=== PATIENT | female | born 1945 | race Caucasian/White ===

== ENCOUNTER → 2018-08-17 09:49 | Outpatient (CLI) | payer MEDICARE, OTHER, SELFPAY ==
--- NOTE | 2018-08-17 | DI.MG.S_ITS ---
BILATERAL DIGITAL SCREENING MAMMOGRAM 3D/2D WITH CAD: 08/17/2018 CLINICAL: Routine screening. Comparison is made to exams dated: 04/27/2017 mammogram, 04/16/2016 mammogram, and 12/03/2014 mammogram - [facility]. The tissue of both breasts is heterogeneously dense. This may lower the sensitivity of mammography. Current study was also evaluated with a Computer Aided Detection (CAD) system. No significant masses, calcifications, or other findings are seen in either breast. There has been no significant interval change. IMPRESSION: NEGATIVE There is no mammographic evidence of malignancy. A 1 year screening mammogram is recommended. This exam was interpreted at Station ID: [id number]. NOTE: For mammograms, a report in lay terms will be sent to the patient. Approximately 15% of breast malignancies will not be visualized mammographically. In the management of a palpable breast mass, a negative mammogram must not discourage biopsy of a clinically suspicious lesion. Electronically Signed By: Yumi tavares/cuauhtemoc:08/17/2018 10:53:34 copy to: KRISTEN BROWN letter sent: Normal Exam ACR BI-RADS Category 1: Negative [id number]
== END ==
PROVIDERS: PCP Internal Medicine; Visit Provider Oral & Maxillofacial Surgery
DX: Z12.31 Encounter for screening mammogram for malignant neoplasm of breast (principal)
CPT/HCPCS: 77063; 77067

== ENCOUNTER → 2019-10-11 11:43 | Outpatient (CLI) | payer MEDICARE, OTHER, SELFPAY ==
--- NOTE | 2019-10-11 | DI.MG.S_ITS ---
BILATERAL DIGITAL SCREENING MAMMOGRAM 3D/2D WITH CAD: 10/11/2019 CLINICAL: Routine screening. Comparison is made to exams dated: 08/17/2018 mammogram, 04/27/2017 mammogram, and 04/16/2016 mammogram - [facility]. The tissue of both breasts is heterogeneously dense. This may lower the sensitivity of mammography. Current study was also evaluated with a Computer Aided Detection (CAD) system. No significant masses, calcifications, or other findings are seen in either breast. There has been no significant interval change. IMPRESSION: NEGATIVE There is no mammographic evidence of malignancy. A 1 year screening mammogram is recommended. This exam was interpreted at Station ID: [id number]. NOTE: For mammograms, a report in lay terms will be sent to the patient. Approximately 15% of breast malignancies will not be visualized mammographically. In the management of a palpable breast mass, a negative mammogram must not discourage biopsy of a clinically suspicious lesion. Electronically Signed By: Calli franklin/cuauhtemoc:10/11/2019 12:54:42 copy to: PATRICE WADE letter sent: Normal Exam ACR BI-RADS Category 1: Negative [id number]
== END ==
PROVIDERS: PCP Nurse Practitioner Gerontology; Visit Provider Internal Medicine
DX: Z12.31 Encounter for screening mammogram for malignant neoplasm of breast (principal)
CPT/HCPCS: 77063; 77067

== ENCOUNTER → 2020-08-28 17:28 | Outpatient (CLI) | payer MEDICARE, OTHER, SELFPAY ==
--- NOTE | 2020-08-28 | DI.RAD.S_ITS ---
PROCEDURE: XR SHOULDER LT MIN 2V INDICATIONS: left shoulder pain TECHNIQUE: 8 views of the shoulder were acquired. COMPARISON: None. FINDINGS: Bones: No fractures or dislocations. No suspicious bony lesions. Visualized ribs appear intact. Mild left shoulder joint degeneration. Soft tissues: No suspicious soft tissue calcifications. IMPRESSION: Mild left shoulder joint degeneration. If the patient's pain or other symptoms persist, consider further evaluation with MRI Dictated by: Iron Abbott M.D. on 08/29/2020 at 12:54 Approved by: Iron Abbott M.D. on 08/29/2020 at 12:56
== END ==
PROVIDERS: PCP Nurse Practitioner Gerontology; Referring Provider Orthopaedic Surgery; Visit Provider Orthopaedic Surgery
DX: M25.512 Pain in left shoulder (principal); M19.012 Primary osteoarthritis, left shoulder; G89.29 Other chronic pain
CPT/HCPCS: 73030

== ENCOUNTER → 2020-12-10 17:05 | Outpatient (CLI) | payer MEDICARE, OTHER, SELFPAY ==
--- NOTE | 2020-12-10 17:08 | DI.MG.S_ITS ---
BILATERAL DIGITAL SCREENING MAMMOGRAM 3D/2D WITH CAD: 12/10/2020 CLINICAL: Routine screening. Comparison is made to exams dated: 10/11/2019 mammogram, 08/17/2018 mammogram, and 04/27/2017 mammogram - [facility]. The tissue of both breasts is heterogeneously dense. This may lower the sensitivity of mammography. Current study was also evaluated with a Computer Aided Detection (CAD) system. No significant masses, calcifications, or other findings are seen in either breast. There has been no significant interval change. IMPRESSION: NEGATIVE There is no mammographic evidence of malignancy. A 1 year screening mammogram is recommended. This exam was interpreted at Station ID: [id number]. NOTE: For mammograms, a report in lay terms will be sent to the patient. Approximately 15% of breast malignancies will not be visualized mammographically. In the management of a palpable breast mass, a negative mammogram must not discourage biopsy of a clinically suspicious lesion. Electronically Signed By: Bereket rouse/cuauhtemoc:12/11/2020 07:20:33 copy to: PATRICE WADE letter sent: Normal Exam ACR BI-RADS Category 1: Negative [id number]
== END ==
PROVIDERS: PCP Nurse Practitioner Gerontology; Referring Provider Nurse Practitioner Gerontology; Visit Provider Nurse Practitioner Gerontology
DX: Z12.31 Encounter for screening mammogram for malignant neoplasm of breast (principal)
CPT/HCPCS: 77063; 77067

== ENCOUNTER → 2021-07-10 10:38 | Outpatient (CLI) | payer MEDICARE, OTHER, SELFPAY ==
[2021-07-10 18:59] LABS: Appearance Urine UA CLEAR; Bilirubin Urine UA NEGATIVE (NEGATIVE); Color Urine UA YELLOW; Glucose Urine UA NEGATIVE (Negative); Ketones Urine UA NEGATIVE (NEGATIVE); Leukocyte Esterase Urine UA NEGATIVE (NEGATIVE); Nitrite Urine UA NEGATIVE (Negative); Occult Blood Urine UA NEGATIVE (Negative); Protein Urine UA NEGATIVE (Negative); Specific Gravity Urine UA 1.025 (1.000-1.035); Urobilinogen Urine UA 0.2 E.U./dL (0.2)
[2021-07-10 19:12] LABS: Add Manual Diff / Slide Review NO; Basophils Absolute Auto 100 /uL (0-100); Basophils Percent Auto 0.8 % (0-2); Eosinophils Absolute Auto 100 /uL (0-450); Eosinophils Percent Auto 1.3 % (2-4); Hemoglobin 13.2 g/dL (12.0-16.0); Lymphocytes Absolute Auto 1400 /uL (1100-4500); Mean Corpuscular Hemoglobin 29.9 PG (26-34); Mean Corpuscular Volume 90.5 fL (80-100); Monocytes Absolute Auto 500 /uL (0-900); Monocytes Percent Auto 6.7 % (3-14); Neutrophils Absolute Auto 5800 /uL (1500-7000); Neutrophils Percent Auto 73.2 % (50-75); Platelet Count 204 X10^3/uL (150-400); Red Blood Cell Count 4.42 X10^6/uL (4.0-5.2); Red Cell Distribution Width 14.4 % (11.6-14.8); White Blood Cell Count 7.9 X10^3/uL (4.5-11.0)
[2021-07-10 19:33] LABS: Alanine Aminotransferase 17 IU/L (<35); Albumin Globulin Ratio 1.5 (1.0-2.8); Alkaline Phosphatase 67 U/L (38-126); Aspartate Aminotransferase 31 IU/L (14-36); BUN Creatinine Ratio 21.3 (6-22); Bilirubin Total 1.1 mg/dL (0.2-1.3); Blood Urea Nitrogen 20 mg/dL (7-17); Calcium 10.2 mg/dL (8.4-10.2); Carbon Dioxide 30 mmol/L (22-32); Chloride 105 mmol/L (98-107); Estimated Glomerular Filt Rate 57.9 mL/min (>60); Globulin 2.7 g/dL (1.7-4.1); Glucose 90 mg/dL (80-110); HEMOLYSIS < 15 (0-50); Sodium 141 mmol/L (137-145); Total Protein 6.7 g/dL (6.3-8.2)
== END ==
PROVIDERS: PCP Nurse Practitioner Gerontology; Visit Provider Physician Assistant
DX: Z01.818 Encounter for other preprocedural examination (principal)
CPT/HCPCS: 80053; 81003; 85025

== ENCOUNTER → 2021-07-25 08:11 | Outpatient (CLI) | payer MEDICARE, OTHER, SELFPAY ==
[2021-07-25 20:35] LABS: COVID19 - ORCAS (NP or Nasal) Negative (Negative)
== END ==
PROVIDERS: PCP Nurse Practitioner Gerontology; Visit Provider Physician Assistant Medical
DX: Z20.822 Contact with and (suspected) exposure to COVID-19 (principal)
CPT/HCPCS: C9803; U0003

== ENCOUNTER → 2021-12-11 10:50 | Outpatient (CLI) | payer MEDICARE, OTHER, SELFPAY ==
--- NOTE | 2021-12-11 | DI.MG.S_ITS ---
BILATERAL DIGITAL SCREENING MAMMOGRAM 3D/2D WITH CAD: 12/11/2021 CLINICAL: Routine screening. Comparison is made to exams dated: 12/10/2020 mammogram, 10/11/2019 mammogram, 08/17/2018 mammogram, 04/27/2017 mammogram, and 04/16/2016 mammogram - [facility]. The tissue of both breasts is heterogeneously dense. This may lower the sensitivity of mammography. Current study was also evaluated with a Computer Aided Detection (CAD) system. No significant masses, calcifications, or other findings are seen in either breast. There has been no significant interval change. IMPRESSION: NEGATIVE There is no mammographic evidence of malignancy. A 1 year screening mammogram is recommended. This exam was interpreted at Station ID: [id number]. NOTE: For mammograms, a report in lay terms will be sent to the patient. Approximately 15% of breast malignancies will not be visualized mammographically. In the management of a palpable breast mass, a negative mammogram must not discourage biopsy of a clinically suspicious lesion. Electronically Signed By: Charli mosley/cuauhtemoc:12/11/2021 14:48:44 copy to: PATRICE WADE letter sent: Normal Exam ACR BI-RADS Category 1: Negative [id number]
== END ==
PROVIDERS: PCP Nurse Practitioner Gerontology; Referring Provider Nurse Practitioner Gerontology; Visit Provider Nurse Practitioner Gerontology
DX: Z12.31 Encounter for screening mammogram for malignant neoplasm of breast (principal)
CPT/HCPCS: 77063; 77067

== ENCOUNTER → 2022-10-15 15:12 | Outpatient (CLI) | payer MEDICARE, OTHER, SELFPAY ==
--- NOTE | 2022-10-15 15:13 | DI.RAD.S_ITS ---
PROCEDURE: XR LUMBAR SPINE MIN 4V INDICATIONS: BACK PAIN TECHNIQUE: 5 views of the lumbar spine were acquired, including bilateral oblique views. COMPARISON: Outside Facility, RG, MRI L-SPINE W/O CONTRAST, 05/29/2022, 13:33. FINDINGS: Bones: 5 nonrib-bearing vertebrae are present. Right convexity curvature of the lumbar spine centered at L3. 5 millimeters anterolisthesis L5 on S1, 5 millimeters anterolisthesis L3 on L4, 3 millimeters retrolisthesis L1 on L2. Moderate-severe multilevel degenerative changes with disc height loss, endplate spurring, and facet arthropathy. No vertebral body compression fractures. Soft tissues: Overlying bowel gas pattern is normal. Vascular calcifications are present. Oblique images: No definite pars defects identified. Suspect mild-moderate multilevel bony neural foraminal stenosis. IMPRESSION: No acute lumbar spine fracture visualized radiographically. Moderate-severe multilevel degenerative changes. Dictated by: Fly Benites M.D. on 10/15/2022 at 16:41 Approved by: Fly eBnites M.D. on 10/15/2022 at 17:04
== END ==
PROVIDERS: PCP Family Medicine; Referring Provider Physical Medicine & Rehabilitation; Visit Provider Physical Medicine & Rehabilitation
DX: M47.816 Spondylosis without myelopathy or radiculopathy, lumbar region (principal); M43.16 Spondylolisthesis, lumbar region; M48.061 Spinal stenosis, lumbar region without neurogenic claudication; R09.89 Other specified symptoms and signs involving the circulatory and respiratory systems; N28.9 Disorder of kidney and ureter, unspecified; M54.9 Dorsalgia, unspecified
CPT/HCPCS: 72110; 99215

== ENCOUNTER 2022-11-05 07:30 | Outpatient (CLI) | payer MEDICARE, OTHER, SELFPAY ==
[2022-11-05] VITALS (8 sets, daily range): BP systolic 127–180; BP diastolic 64–77; PULSE 56–64; RESP 15–20; TEMP 36.6; O2SAT 96–98
--- NOTE | 2022-11-05 | DI.RAD.S_ITS ---
PROCEDURE: PAIN L INTERLAMINAR/CAUDAL INJ INDICATIONS: Spinal stenosis, lumbar region without neurogenic COMPARISON: [facility], CR, XR LUMBAR SPINE MIN 4V, 10/15/2022, 15:17. Outside Facility, RG, MRI L-SPINE W/O CONTRAST, 05/29/2022, 13:33. FINDINGS: Fluoroscopic spot filming was performed to verify placement of spinal needles at the L3-L4 level(s), as labeled on the films. Appropriate location(s) of the needle tip(s) was confirmed by injection of iodinated contrast. IMPRESSION: Fluoroscopy for pain management. Dictated by: Juliet Azul M.D. on 11/05/2022 at 12:17 Approved by: Juliet Azul M.D. on 11/05/2022 at 12:17
[2022-11-05] MEDS: MIDAZOLAM 2 MG/2 ML VIAL IV (08:53)
[2022-11-05] MEDS: methylPREDNISolone acetate 80 MG/ML VIAL INJ (08:59)
[2022-11-05] MEDS: DEXAMETHASONE 10 MG/ML VIAL 20 MG INJ (08:59)
[2022-11-05] MEDS: IOPAMIDOL 15 ML VIAL 3 ML INJ (08:59)
[2022-11-05] MEDS: BUPIVACAINE 0.25% (PF) VIAL 2 ML INJ (09:00)
--- NOTE | 2022-11-05 09:10 | P.PCN_ITS ---
Date/Time/Diagnoses Date of procedure: 11/05/22 Time of procedure: 09:10 Pre-procedure diagnosis: 1. HNP WITH RADICULAR FEATURES, 2. MULTILEVEL CENTRAL STENOSIS, Post-procedure diagnosis: same Procedure Notes Procedure: 1. FLUOROSCOPICALLY GUIDED CONTRAST CONTROLLED INTERLAMINAR EPIDURAL STEROID INJECTION - L3/4 Indications: Hong is referred by Dr. Gray for treatment of Bilateral Foraminal Stenosis L>R LE symptoms. Physician: Damien Fitzgerald Total Fluoroscopy time (seconds): 8 Total sedation minutes: 12 Complications: none Procedure in detail & Post-procedure care: FINDINGS Multilevel Central Spinal Stenosis with Nerve Root Compression DESCRIPTION OF PROCEDURE Fluoroscopically guided, contrast-controlled L3/4 translaminar epidural steroid injection. Following review of allergy and review of potential side effects and complications, including, but not necessarily limited to, infection, allergic reaction, local tissue breakdown, temporary as well as permanent nerve injury, paralysis, stroke and possible , the patient indicated that the patient understood and agreed to proceed. An informed consent document was signed by the patient, witnessed by a nurse, and placed in the patient's chart. Additionally, other treatment options including modalities, medications, and physical therapy were reviewed with the patient. After review of previous anaesthesic history and IV conscious sedation the patient was deemed safe to proceed with today?s procedure with IV conscious sedation as ASA class II designation. Safety time-out was performed to confirm p atient ID, procedure to be performed and site of procedure. IV sedation was accomplished with a combination of 2mg of Versed was administered by the RN after DO order, titrated to patient comfort during the course of the procedure while the patient remained responsive to all verbal commands. In the prone position, following sterile prep and drape of the lumbar region, the L3/4 translaminar space was identified fluoroscopically. The skin was anesthetized via a 25-gauge, 1.5-inch needle with 1% lidocaine solution. At this point, a 22-gauge short bevel spinal needle was atraumatically introduced and advanced under fluoroscopic guidance into the region of the L3/4 translaminar space. Depth was confirmed on lateral view. Radiological data, including multiple fluoroscopic views of the lumbar spine, reveal a spinal needle at the L3/4 translaminar space. Lateral views then show placement of the needle in the epidural space. Subsequent views show contrast material flowing superiorly and inferiorly in the epidural space. No vascular or intrathecal uptake is observed. At this point, using loss of resistance technique with saline and air, the epidural space was entered. This was confirmed following negative aspiration with injection of approximately 1.5 cc of Isovue 200, showing excellent epidural flow without vascular or intrathecal uptake. At this point, 1cc of 1% lidocaine solution combined with 3cc or 20mg of dexamethasone and 6mg of betamethasone was injected without incident. The patient tolerated the procedure well without signs or symptoms of complications prior to transfer to the recovery area continued monitoring without incident. The patient was then transferred to the recovery area where they were observed for an appropriate period of time after the injection. The patient reported a VAS score of 6 prior to the procedure and a post- procedure VAS of 0. POST OP INSTRUCTIONS The patient was provided a Pain Log to continue to record their response to the target-specific procedure prior to follow-up visit with their referring physician. Additionally, specific post-injection care instructions and a contact number to our office were provided if concerns arise regarding possible complications associated with the procedure are suspected.
== END 2022-11-05 09:27 | disposition home or self-care (01) ==
LOC: RAD 07:31
PROVIDERS: PCP Family Medicine; Referring Provider Physical Medicine & Rehabilitation; Visit Provider Physical Medicine & Rehabilitation
DX: M48.061 Spinal stenosis, lumbar region without neurogenic claudication (principal); M51.16 Intervertebral disc disorders with radiculopathy, lumbar region
CPT/HCPCS: 62323; 99152; J0702; J1040; J1100; J2250; J3490

== ENCOUNTER 2023-05-11 09:19 | Outpatient (CLI) | payer MEDICARE, OTHER, SELFPAY ==
[2023-05-11] VITALS (9 sets, daily range): BP systolic 109–154; BP diastolic 57–79; PULSE 51–60; RESP 12–20; TEMP 36.6; O2SAT 95–100
--- NOTE | 2023-05-11 09:20 | DI.RAD.S_ITS ---
PROCEDURE: PAIN L/S TRANSFORAMINAL INJECT INDICATIONS: SPONDYLOSIS COMPARISON: [facility], XA, PAIN L INTERLAMINAR/CAUDAL INJ, 11/05/2022, 9:59. FINDINGS: Fluoroscopic spot filming was performed to verify placement of spinal needles on the left at the L3-L4 and L4-L5 levels, as labeled on the films. Appropriate location of the needle tips was confirmed by injection of iodinated contrast. IMPRESSION: Intraprocedural examination demonstrating appropriate positions of the needles. Dictated by: Wolf Benjamin M.D. on 05/11/2023 at 14:23 Approved by: Wolf Benjamin M.D. on 05/11/2023 at 14:24
[2023-05-11] MEDS: MIDAZOLAM 2 MG/2 ML VIAL IV (10:15)
[2023-05-11] MEDS: fentaNYL 100 MCG/2 ML INJ 50 MCG IV (10:21)
[2023-05-11] MEDS: BETAMETHASONE 30 MG/5 ML MDV 6 MG INJ (10:23)
[2023-05-11] MEDS: DEXAMETHASONE 10 MG/ML VIAL 20 MG INJ (10:23)
[2023-05-11] MEDS: BUPIVACAINE 0.25% (PF) VIAL 2 ML INJ (10:24)
[2023-05-11] MEDS: IOPAMIDOL 15 ML VIAL 3 ML INJ (10:24)
--- NOTE | 2023-05-11 10:38 | P.PCN_ITS ---
Date/Time/Diagnoses Date of procedure: 05/11/23 Time of procedure: 10:38 Pre-procedure diagnosis: 1. FORAMINAL STENOSIS WITH LE SYMPTOMS Post-procedure diagnosis: same Procedure Notes Procedure: 1. FLUOROSCOPICALLY GUIDED CONTRAST CONTROLLED TRANSFORAMINAL EPIDURAL STEROID INJECTION - LEFT L4/5 Indications: Hong is referred by Dr. Gray for treatment of Foraminal Stenosis with Left LE Symptoms Physician: Damien Fitzgerald Total Fluoroscopy time (seconds): 11 Total sedation minutes: 15 Complications: none Procedure in detail & Post-procedure care: FINDINGS Foraminal Nerve Root Compression secondary to disc disease and facet hypertrophy DESCRIPTION OF PROCEDURE Following review of allergy and review of potential side effects and complications, including, but not necessarily limited to, infection, allergic reaction, local tissue breakdown, stroke, temporary or permanent nerve injury, paralysis, and possible , the patient indicated that the patient understood and agreed to proceed. An informed consent document was signed by the patient, witnessed by a nurse, and placed in the patient's chart. Additionally, other treatment options including medications, modalities, and physical therapy were reviewed with the patient. After review of previous anaesthesic history and IV conscious sedation the patient was deemed safe to proceed with today?s procedure with IV conscious sedation as ASA class II designation. Safety time-out was performed to confirm patient ID, procedure to be performed and site of procedure. IV sedation was accomplished with a combination of 2mg of Versed and 50mcg of Fentanyl administered by the RN after DO order, titrated to patient comfort during the course of the procedure while the patient remained responsive to all verbal commands In the prone position following sterile prep and drape of the lumbar region, the left L4/5 posterior neuroforamen was identified fluoroscopically. The skin was anesthetized via a 25-gauge 1.5-inch needle with 1% lidocaine solution. At this point, a 25-gauge 3.5-inch spinal needle was atraumatically introduced and advanced under fluoroscopic guidance through the posterior left L4/5 neuroforamen to approximately the anterior aspect of the canal. Depth was confirmed on lateral view. Following negative aspiration, injection of approximately 1.5 cc of Isovue 200 under live fluoroscopy in the AP view confirmed excellent flow along the nerve root, into the epidural space without vascular or intrathecal uptake observed Radiological data, including multiple fluoroscopic views of the lumbosacral spine, reveal a spinal needle at the left L4/5 posterior neuroforamen. Subsequent views show flow of contrast material flowing superiorly and inferiorly along the nerve root confirming epidural flow. Subsequently, a test dose of 1.5 cc of 1% lidocaine solution was administered and patient was observed for two minutes for signs or symptoms of complications, including abdominal pain, shortness of breath, bilateral upper or lower extremity weakness, nausea and vomiting, prior to steroid injection. At this point, a total of 2cc or 10mg of dexamethasone and 6mg of betamethasone was injected without incident. The procedure tolerated the procedure well without signs or symptoms of complications prior to transfer to the recovery area continued monitoring without incident. The patient was then transferred to the recovery area where they were observed for an appropriate time after the injection. The patient reported a VAS score of 7 prior to the procedure and a post- procedure VAS of 1. POST OP INSTRUCTIONS The patient was provided a Pain Log to continue to record their response to the target-specific procedure prior to follow-up visit with their referring physician. Additionally, specific post-injection care instructions and a contact number to our office were provided if concerns arise regarding possible complications associated with the procedure are suspected.
--- NOTE | 2023-05-11 10:39 | P.PCN_ITS ---
Date/Time/Diagnoses Date of procedure: 05/11/23 Time of procedure: 10:39 Pre-procedure diagnosis: 1. FORAMINAL STENOSIS WITH LE SYMPTOMS Post-procedure diagnosis: same Procedure Notes Procedure: 1. FLUOROSCOPICALLY GUIDED CONTRAST CONTROLLED TRANSFORAMINAL EPIDURAL STEROID INJECTION - LEFT L3/4 TFESI Indications: Hong is referred by Dr. Gray for treatment of Foraminal Stenosis with left LE Symptoms Physician: Damien Fitzgerald Total Fluoroscopy time (seconds): 11 Total sedation minutes: 15 Complications: none Procedure in detail & Post-procedure care: FINDINGS Foraminal Nerve Root Compression secondary to disc disease and facet hypertrophy DESCRIPTION OF PROCEDURE Following review of allergy and review of potential side effects and complications, including, but not necessarily limited to, infection, allergic reaction, local tissue breakdown, stroke, temporary or permanent nerve injury, paralysis, and possible , the patient indicated that the patient understood and agreed to proceed. An informed consent document was signed by the patient, witnessed by a nurse, and placed in the patient's chart. Additionally, other treatment options including medications, modalities, and physical therapy were reviewed with the patient. After review of previous anaesthesic history and IV conscious sedation the patient was deemed safe to proceed with today?s procedure with IV conscious sedation as ASA class II designation. Safety time-out was performed to confirm patient ID, procedure to be performed and site of procedure. IV sedation was accomplished with a combination of 2mg of Versed and 50mcg of Fentanyl was administered by the RN after DO order, titrated to patient comfort during the course of the procedure while the patient remained responsive to all verbal c ommands In the prone position following sterile prep and drape of the lumbar region, the left L3/4 posterior neuroforamen was identified fluoroscopically. The skin was anesthetized via a 25-gauge 1.5-inch needle with 1% lidocaine solution. At this point, a 25-gauge 3.5-inch spinal needle was atraumatically introduced and advanced under fluoroscopic guidance through the posterior left L3/4 neuro foramen to approximately the anterior aspect of the canal. Depth was confirmed on lateral view. Following negative aspiration, injection of approximately 1.5cc of Isovue 200 under live fluoroscopy in the AP view confirmed excellent flow along the nerve root, into the epidural space without vascular or intrathecal uptake observed Radiological data, including multiple fluoroscopic views of the lumbosacral spine, reveal a spinal needle at the left L3/4 posterior neuroforamen. Subsequent views show flow of contrast material flowing superiorly and inferiorly along the nerve root confirming epidural flow. Subsequently, a test dose of 1.5cc of 1% lidocaine solution was administered and patient was observed for two minutes for signs or symptoms of complications, including abdominal pain, shortness of breath, bilateral upper or lower extremity weakness, nausea and vomiting, prior to steroid injection. At this point, a total of 2cc or 10mg of dexamethasone and 6mg betamethasone was inj ected without incident. The patient tolerated the procedure well without signs or symptoms of complications prior to transfer to the recovery area continued monitoring without incident. The patient was then transferred to the recovery area where they were observed for an appropriate time after the injection. The patient reported a VAS score of 7 prior to the procedure and a post-procedure VAS of 1. POST OP INSTRUCTIONS The patient was provided a Pain Log to continue to record their response to the target-specific procedure prior to follow-up visit with their referring physician. Additionally, specific post-injection care instructions and a contact number to our office were provided if concerns arise regarding possible complications associated with the procedure are suspected.
--- NOTE | 2023-05-11 11:50 | PC.NURSE ---
Patient d/c to [facility], strong transfer from chair to car, denies any leg weakness.
== END 2023-05-11 11:51 | disposition home or self-care (01) ==
LOC: RAD 09:20
PROVIDERS: PCP Family Medicine; Referring Provider Physical Medicine & Rehabilitation; Visit Provider Physical Medicine & Rehabilitation
DX: M48.061 Spinal stenosis, lumbar region without neurogenic claudication (principal); M51.16 Intervertebral disc disorders with radiculopathy, lumbar region; M47.26 Other spondylosis with radiculopathy, lumbar region
CPT/HCPCS: 64483; 64484; 99152; J0702; J1100; J2250; J3010; J3490

== ENCOUNTER → 2024-12-06 11:29 | Outpatient (CLI) | payer MEDICARE, OTHER, SELFPAY ==
--- NOTE | 2024-12-06 11:31 | DI.RAD.S_ITS ---
PROCEDURE: XR DEXA AXIAL SKELETON INDICATIONS: OSTEOPENIA / HIGH RISK FOR FALLS COMPARISON: None. FINDINGS: Lumbar Spine: Bone mineral density 0.91 g/cm2, T score -1,. Left Femoral Neck: Bone mineral density 0.62 g/cm2, T score -2.1. Left Hip: Bone mineral density 0.70 g/cm2, T score -2,. Fracture Risk Calculation (when applicable): 10-year fracture risk of a major osteoporotic fracture 16% percent and of a hip fracture 4.5% percent. (T score greater or equal to -1.0 to: NORMAL) (T score from -1.1 to -2.4: OSTEOPENIA) (T score less than or equal to -2.5: OSTEOPOROSIS) IMPRESSION: Osteopenia with elevated fracture risk calculation as described above. Follow-up guidelines as follows: Osteoporosis: Consider a repeat DEXA and Vertebral Fracture Assessment (VFA) exam in 2 years or sooner if medically necessary, to reassess this patient's status. Osteopenia: Consider a repeat DEXA in 2-3 years to reassess this patient's status, or if there is a new clinical indication. Normal: Consider a repeat DEXA in 5 years or sooner, or if there is a new clinical indication. All treatment decisions require clinical judgment and consideration of individual patient factors, including patient preferences, comorbidities, previous drug use, risk factors not captured in the FRAX model (e.g., frailty, falls, vitamin D deficiency, increased bone turnover, interval significant decline in bone density ) and possible under- or over-estimation of fracture risk by FRAX. In addition, the NOF Guide recommends that FDA-approved medical therapies be considered in postmenopausal women and men age >= 50 years with a: * Hip or vertebral (clinical or morphometric) fracture * T-score of <=-2.5 at the spine or hip * Ten-year fracture probability by FRAX of >= 3% for hip fracture or >=20% for major osteoporotic fracture. Dictated by: Rodolfo Marley M.D. on 12/06/2024 at 14:52 Approved by: Rodolfo Marley M.D. on 12/06/2024 at 14:53
== END ==
LOC: RAD 11:31
PROVIDERS: PCP Family Medicine; Referring Provider Family Medicine; Visit Provider Family Medicine
DX: M85.88 Other specified disorders of bone density and structure, other site (principal); Z78.0 Asymptomatic menopausal state
CPT/HCPCS: 77080

== ENCOUNTER → 2024-12-06 12:01 | Outpatient (CLI) | payer MEDICARE, OTHER, SELFPAY ==
--- NOTE | 2024-12-06 12:03 | DI.MRI.S_ITS ---
PROCEDURE: MR KNEE LT WO CON INDICATIONS: PAIN IN BOTH KNEES TECHNIQUE: Noncontrast sagittal PD fast spin echo and T2 fast spin echo with fat saturation, sagittal 3-D FLASH with fat saturation; coronal T1 spin echo and PD fast spin echo with fat saturation, and axial PD fast spin echo with fat saturation through the knee. COMPARISON: None. FINDINGS: Image quality: Excellent. Menisci: In the medial meniscus, there is oblique tear of the posterior horn. There is complex tear of the medial meniscus body, with mild extrusion of the medial meniscus body, and a small meniscus flap extending into the inferior gutter. The lateral meniscus is unremarkable. Cruciate ligaments: The anterior and posterior cruciate ligaments appear intact. Medial structures: The medial collateral ligament appears intact. The posterior oblique ligament, semimembranosus tendon insertions, oblique popliteal ligament, and meniscocapsular junction appear intact. Visualized portions of the pes anserinus tendons appear normal. No abnormal bursal fluid. Lateral structures: The lateral collateral ligament, long and short heads of the biceps femoris tendon appear intact. The popliteus tendon appears normal; the popliteofibular ligament appears intact. The posterosuperior and anteroinferior popliteomeniscal fascicles appear intact. The arcuate and fabellofibular ligaments appear intact, on either side of the lateral inferior geniculate artery. Iliotibial band appears normal. Anterior structures: The quadriceps tendon is unremarkable. Mild tendinosis of the proximal patellar tendon. Mild prepatellar subcutaneous edema. Alignment of the patellofemoral compartment is anatomic. The medial and lateral patellofemoral ligaments are intact. Bones and cartilage: High multifocal high-grade chondral irregularity of the median ridge and the medial patellar facet. Mild subchondral marrow edema in the median ridge. Cartilage of the trochlea is unremarkable. In the medial compartment, there is multifocal mild chondral irregularity in the nonweightbearing portion of the medial femoral condyle. In the lateral compartment, there is mild chondral irregularity in the weight-bearing portion of the lateral femoral condyle, and in the lateral tibial plateau. No acute fracture. Joint space: Small knee effusion. No popliteal cyst. Popliteal vasculature is unremarkable. No intra-articular body. IMPRESSION: 1. Tear of the medial meniscus with a meniscus flap. 2. Mild tricompartmental chondrosis. Dictated by: Bhavana Glass M.D. on 12/06/2024 at 14:41 Approved by: Bhavana Glass M.D. on 12/06/2024 at 14:50
== END ==
LOC: MRI 12:02
PROVIDERS: PCP Family Medicine; Referring Provider Student in an Organized Health Care Education/Training Program; Visit Provider Student in an Organized Health Care Education/Training Program
DX: S83.231A Complex tear of medial meniscus, current injury, right knee, initial encounter (principal); M94.261 Chondromalacia, right knee; M25.561 Pain in right knee; M25.562 Pain in left knee; M25.512 Pain in left shoulder; M75.112 Incomplete rotator cuff tear or rupture of left shoulder, not specified as traumatic; M19.012 Primary osteoarthritis, left shoulder; S43.432A Superior glenoid labrum lesion of left shoulder, initial encounter; M85.88 Other specified disorders of bone density and structure, other site; Z78.0 Asymptomatic menopausal state
CPT/HCPCS: 23350; 73040; 73222; 73721; 77080; A9579; Q9967

== ENCOUNTER → 2024-12-06 12:04 | Outpatient (CLI) | payer MEDICARE, OTHER, SELFPAY ==
--- NOTE | 2024-12-06 12:05 | DI.MRI.S_ITS ---
PROCEDURE: MR SHOULDER LT W CON INDICATIONS: PAIN IN LEFT SHOULDER TECHNIQUE: After the administration of dilute intra-articular Gadolinium contrast, oblique coronal T1 and T2 spin echo with fat saturation, oblique sagittal T1 spin echo with and without fat saturation, oblique sagittal T2 fast spin echo with fat saturation, axial T1 spin echo with fat saturation through the shoulder. COMPARISON: [facility], CR, XR SHOULDER LT MIN 2V, 08/28/2020, 17:44. [facility], RF, [place] ARTHROGRAM SHOULDER LT, 12/06/2024, 12:05. FINDINGS: Image quality: Excellent. Susceptibility artifact is present overlying the distal clavicle, likely secondary to prior surgical intervention (07/27). Bones: Subchondral cyst formation and marrow edema is present at the anterior-distal tip of the acromion (06/07). The bone marrow signal is otherwise normal. There is no acute fracture or dislocation. Acromioclavicular joint: Mild osteoarthritis. There is a type 2 acromion. Glenohumeral joint: There is no significant osteoarthritis. Gadolinium-based intra-articular contrast is present in the glenohumeral joint space, which extends into the subacromial-subdeltoid bursa via the rotator cuff pathology noted below. Labrum: There is a tear of the superior anterior-posterior labrum extending from the 9:00 to 3:00 positions (9 o'clock is anterior; 06/01; 6/8-11). Cartilage: There is no significant articular cartilage defect. Subacromial-subdeltoid bursa: Fluid is decompressing from the glenohumeral joint into the subacromial-subdeltoid bursa. Rotator cuff: Superimposed on mild tendinosis and articular sided/bursal sided fraying, there is a full-thickness, partial width tear of the anterior-most supraspinatus fibers at the footprint (06/06; 8/6), with associated decompression of joint fluid into the subacromial-subdeltoid bursa. There is mild infraspinatus tendinosis. There is mild subscapularis tendinosis. The teres minor tendon is intact. Long head of biceps tendon: The long head of the biceps tendon is present within the bicipital groove and intact. Musculature: Muscle bulk is preserved without evidence of denervation or fatty atrophy. Inferior glenohumeral ligaments/Axillary pouch: The axillary pouch is normal in thickness and signal. Coracoclavicular and coracoacromial ligaments: The coracoclavicular and coracoacromial ligaments are normal. Other: No other acute abnormality. IMPRESSION: 1. Full-thickness, partial width tear of the anterior-most supraspinatus footprint fibers, superimposed on mild tendinosis and articular sided/bursal sided fraying. No significant tendon retraction at this time. 2. Mild infraspinatus tendinosis. 3. Mild subscapularis tendinosis. 4. Superior labrum anterior-posterior tear. 5. Mild acromioclavicular osteoarthritis. Dictated by: Toan Richard M.D. on 12/06/2024 at 13:49 Approved by: Toan Richard M.D. on 12/06/2024 at 14:17
--- NOTE | 2024-12-06 12:06 | DI.RAD.S_ITS ---
PROCEDURE: [place] ARTHROGRAM SHOULDER LT INDICATIONS: PAIN IN LEFT SHOULDER COMPARISON: None. TECHNIQUE: The indications, alternatives, benefits, risks, and complications of the procedure were explained to the patient. Written informed consent was obtained and placed in the chart. The shoulder was examined fluoroscopically and a site for needle placement chosen for entry into the glenohumeral joint from an anterior approach. The skin was prepped and draped in a sterile fashion, and 1% lidocaine infiltrated from skin down to joint capsule. A spinal needle was inserted into the glenohumeral joint, and a small amount of iodinated contrast media injected to confirm intra-articular placement of the needle tip. This was followed by approximately 12 mL dilute solution of a gadolinium containing MR contrast agent. The needle was removed and a dressing was applied. The patient was given postprocedural instructions and sent to the MR suite for MR imaging. FINDINGS: A single fluoroscopic spot image demonstrates intra-articular location of injected iodinated contrast. IMPRESSION: Successful fluoroscopically guided administration of dilute Gadolinium solution into the shoulder joint for MR arthrogram. Dictated by: Rodolfo Marley M.D. on 12/06/2024 at 14:53 Approved by: Rodolfo Marley M.D. on 12/06/2024 at 14:54
[2024-12-06] MEDS: LIDOCAINE 1% 20 ML INJ (14:10)
[2024-12-06] MEDS: SODIUM CHLORIDE 0.9 % 20 ML VIAL IV (14:10)
== END ==
LOC: RAD 12:05
PROVIDERS: PCP Family Medicine; Referring Provider Orthopaedic Surgery; Visit Provider Orthopaedic Surgery
DX: S43.432A Superior glenoid labrum lesion of left shoulder, initial encounter (principal); M75.112 Incomplete rotator cuff tear or rupture of left shoulder, not specified as traumatic; M19.012 Primary osteoarthritis, left shoulder; M25.512 Pain in left shoulder
CPT/HCPCS: 23350; 73040; 73222; A9579; Q9967

== ENCOUNTER → 2024-12-28 11:54 | Outpatient (CLI) | payer MEDICARE, OTHER, SELFPAY ==
--- NOTE | 2024-12-28 12:00 | DI.US.S_ITS ---
PROCEDURE: US CAROTID DOPPLER BI INDICATIONS: PULSATILE TINNITUS TECHNIQUE: Color and pulse Doppler interrogation was performed of both carotid systems, with image documentation and velocity measurements. COMPARISON: None. FINDINGS: Stenosis calculations are based on SRU (Society of Radi[employer] in Ultrasound) criteria. Right side: Brachial blood pressure: 126/76 mm Hg. Common carotid artery peak systolic velocity: 58 cm/sec. Internal carotid artery peak systolic velocity: 86 cm/sec. Internal carotid artery end diastolic velocity: 31 cm/sec. External carotid artery peak systolic velocity: 76 cm/sec. ICA/CCA peak systolic ratio: 1.5 . Delvalle scale imaging description: Mild plaque without significant stenosis Percent internal carotid artery stenosis: Less than 50% by peak systolic velocity criteria . Vertebral artery: Flow direction is antegrade. Left side: Brachial blood pressure: 134/74 mm Hg. Common carotid artery peak systolic velocity: 74 cm/sec. Internal carotid artery peak systolic velocity: 65 cm/sec. Internal carotid artery end diastolic velocity: 21 cm/sec. External carotid artery peak systolic velocity: 73 cm/sec. ICA/CCA peak systolic ratio: 0.9 . Delvalle scale imaging description: Scattered plaque without significant stenosis. Percent internal carotid artery stenosis: Less than 50% by peak systolic velocity criteria . Vertebral artery: Flow direction is antegrade. IMPRESSION: 1. In the right carotid artery, there is less than 50% stenosis based on peak systolic velocity criteria. Grayscale imaging suggests mild stenotic disease. 2. In the left carotid artery, there is less than 50% stenosis based on peak systolic velocity criteria. Grayscale imaging suggests mild stenotic disease. 3. Antegrade vertebral arteries. Dictated by: Benny Durán M.D. on 12/28/2024 at 13:39 Approved by: Benny Durán M.D. on 12/28/2024 at 13:43
== END ==
PROVIDERS: PCP Family Medicine; Referring Provider Family Medicine; Visit Provider Family Medicine
DX: H93.A3 Pulsatile tinnitus, bilateral (principal); I65.23 Occlusion and stenosis of bilateral carotid arteries
CPT/HCPCS: 93880

== ENCOUNTER → 2025-06-23 13:07 | Outpatient (CLI) | payer MEDICARE, OTHER, SELFPAY ==
--- NOTE | 2025-06-23 13:13 | DI.MRI.S_ITS ---
PROCEDURE: MR KNEE LT WO CON INDICATIONS: PAIN TECHNIQUE: Noncontrast sagittal PD fast spin echo and T2 fast spin echo with fat saturation, sagittal 3-D FLASH with fat saturation; coronal T1 spin echo and PD fast spin echo with fat saturation, and axial PD fast spin echo with fat saturation through the knee. COMPARISON: [facility], MR, MR KNEE LT WO CON, 12/06/2024, 12:34. FINDINGS: Quality: Adequate Menisci: Medial meniscus: Tear of the medial meniscus body and posterior horn similar to prior examination. Lateral meniscus: Intact Cruciate ligaments: Anterior cruciate ligament: Intact Posterior cruciate ligament: Intact Collateral ligaments: Medial collateral ligament: Edema along and deep to the ligament without discrete tear. Lateral collateral ligament complex: Fibular collateral ligament with thickening and increased signal proximally and edema along the ligament. Distal biceps femoris and iliotibial band are intact. Popliteus tendon is intact with insertional tendinopathy. Extensor mechanism: Quadriceps tendon: Intact Patellar tendon: Intact Retinaculum: Intact Fat pads: Unremarkable Cartilage: Nonuniform tricompartmental cartilage loss with near full thickness thinning in the medial patellar facet and posterior nonweightbearing portion of the medial femoral condyle, worsened from prior examination. Bones: No fracture. Fluid spaces: Joint: Moderate effusion. Popliteal cyst: Small popliteal cyst. Other: None IMPRESSION: Moderate effusion. 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 Unchanged medial meniscus tear. Pericapsular edema associated with a joint effusion versus grade 1 medial and lateral collateral ligament sprains. Dictated by: Timmy Brenner M.D. on 06/25/2025 at 14:01 Approved by: Timmy Brenner M.D. on 06/25/2025 at 14:07
== END ==
LOC: MRI 13:10
PROVIDERS: PCP Family Medicine; Referring Provider Student in an Organized Health Care Education/Training Program; Visit Provider Student in an Organized Health Care Education/Training Program
DX: S83.242D Other tear of medial meniscus, current injury, left knee, subsequent encounter (principal); M71.22 Synovial cyst of popliteal space [Baker], left knee; M17.12 Unilateral primary osteoarthritis, left knee; M25.562 Pain in left knee; M25.561 Pain in right knee
CPT/HCPCS: 73721

== ENCOUNTER → 2025-06-25 15:53 | Outpatient (CLI) | payer MEDICARE, OTHER, SELFPAY ==
--- NOTE | 2025-06-25 15:56 | DI.RAD.S_ITS ---
PROCEDURE: [place] ARTHROGRAM SHOULDER LT INDICATIONS: pain in left shoulder COMPARISON: [facility], , [place] ARTHROGRAM SHOULDER LT, 12/06/2024, 12:05. TECHNIQUE: The indications, alternatives, benefits, risks, and complications of the procedure were explained to the patient. Written informed consent was obtained and placed in the chart. The shoulder was examined fluoroscopically and a site for needle placement chosen for entry into the glenohumeral joint from an anterior approach. The skin was prepped and draped in a sterile fashion, and 1% lidocaine infiltrated from skin down to joint capsule. A spinal needle was inserted into the glenohumeral joint, and a small amount of iodinated contrast media injected to confirm intra-articular placement of the needle tip. This was followed by approximately 12 mL dilute solution of a gadolinium containing MR contrast agent. The needle was removed and a dressing was applied. The patient was given postprocedural instructions and sent to the MR suite for MR imaging. FINDINGS: A single fluoroscopic spot image demonstrates intra-articular location of injected iodinated contrast. IMPRESSION: Successful fluoroscopically guided administration of dilute Gadolinium solution into the shoulder joint for MR arthrogram. Dictated by: Gian Chamberlain M.D. on 06/26/2025 at 14:07 Approved by: Gian Chamberlain M.D. on 06/26/2025 at 14:07
--- NOTE | 2025-06-25 15:57 | DI.MRI.S_ITS ---
PROCEDURE: MR SHOULDER LT W CON INDICATIONS: pain in left shoulder TECHNIQUE: After the administration of 12 mL of dilute intra-articular Gadolinium contrast, oblique coronal T1 and T2 spin echo with fat saturation, oblique sagittal T1 spin echo with and without fat saturation, oblique sagittal T2 fast spin echo with fat saturation, axial T1 spin echo with fat saturation through the shoulder. COMPARISON: [facility], MR, MR SHOULDER LT W CON, 12/06/2024, 13:21. FINDINGS: Image quality: Excellent. Rotator cuff: There is focal full-thickness perforation involving most anterior fibers of distal supraspinatus at its insertion on humeral head with contrast extravasation into subacromial subdeltoid bursa. No significant retraction of torn tendon fibers are seen. Low to moderate grade articular surface partial-thickness tear involving rest of the supraspinatus at its insertion on humeral head extending to musculotendinous junction. Distal infraspinatus tendinosis. The subscapularis tendon is intact. No significant in rotator cuff muscle atrophy on sagittal images. Bones and bursae: No bone marrow contusions or fractures. [id number] acromioclavicular joint osteoarthritic changes are seen with joint space narrowing and small marginal osteophyte formation depressing on musculotendinous junction of supraspinatus. Type 1 acromion without an os acromiale. Capsule and soft tissues: Subtle T2 hyperintense signal with contrast extension and fraying involving superior anterior glenoid labrum concerning for subtle superior anterior labral tear. The glenohumeral ligaments appear intact. There is suggestion of torn proximal long head of biceps tendon at its proximal insertion with lateral retraction in of torn tendon fibers to the level of greater tuberosity. No intra-articular bodies. IMPRESSION: 1. Low to moderate grade articular surface partial-thickness tear involving distal supraspinatus extending to musculotendinous junction with focal full-thickness perforation involving most anterior fibers of distal supraspinatus at its insertion on humeral head and contrast extravasating into subacromial subdeltoid bursa. 2. Distal infraspinatus tendinosis. No significant rotator cuff muscle atrophy. 3. [id number] acromioclavicular joint osteoarthritis. No fracture or dislocation. No loose bodies. 4. Finding is concerning for very subtle superior anterior glenoid labral tear. 5. Suggestion of ruptured proximal intra-articular portion of long head of biceps with lateral retraction of torn tendon fibers to the level of greater tuberosity. Dictated by: Kenny Pacheco M.D. on 06/26/2025 at 13:50 Approved by: Kenny Pacheco M.D. on 06/26/2025 at 13:55
== END ==
LOC: RAD 15:56
PROVIDERS: PCP Family Medicine; Referring Provider Orthopaedic Surgery; Visit Provider Orthopaedic Surgery
DX: M75.112 Incomplete rotator cuff tear or rupture of left shoulder, not specified as traumatic (principal); M19.012 Primary osteoarthritis, left shoulder; M25.512 Pain in left shoulder
CPT/HCPCS: 23350; 73040; 73222; A9579; Q9967